=== PATIENT | female | born 1950 | race Hispanic/Latino ===

== ENCOUNTER 2018-11-13 11:07 | Emergency (ER) | payer OTHER, MEDICARE ==
[2018-11-13 12:04] LABS: BASOPHILS % (AUTO) 0.8 % (0.0-5.0); EOSINOPHILS % (AUTO) 2.3 % (0.0-8.0); HEMATOCRIT 37.1 % (36-48); LYMPHOCYTES % (AUTO) 38.5 % (21.0-51.0); MEAN CORPUSCULAR HEMOGLOBIN 33.5 pg (27.0-33.0); MEAN CORPUSCULAR HGB CONC 33.7 g/dL (32.0-36.0); MEAN CORPUSCULAR VOLUME 99.2 fL (79-99); MONOCYTES % (AUTO) 7.1 % (3.0-13.0); NEUTROPHILS % (AUTO) 51.3 % (40.0-77.0); NUCLEATED RED BLOOD CELLS 0.1 % (0.0-0.19); PLATELET COUNT (AUTO) 118 K/uL (130-400); RED BLOOD CELL COUNT(AUTO) 3.74 MIL/uL (4.00-5.50); RED CELL DISTRIBUTION WIDTH 13.7 % (11.0-15.5)
[2018-11-13] MEDS ORDERED: DIAZEPAM 5 MG TABLET ONE (12:04)
[2018-11-13 12:13] LABS: CREATININE 0.7 mg/dL (0.5-1.5); POTASSIUM 4.3 mmol/L (3.5-5.1)
[2018-11-13 12:34] LABS: B-TYPE NATRIURETIC PEPTIDE 210 pg/mL (0-100)
== END 2018-11-13 15:16 | disposition home or self-care (01) ==
LOC: EDH 11:07
DX: I10 Essential (primary) hypertension (principal); R00.1 Bradycardia, unspecified; Z98.890 Other specified postprocedural states; Z72.0 Tobacco use
CPT/HCPCS: 36415; 70450; 71045; 80048; 83880; 84484; 85025; 93005

== ENCOUNTER 2021-06-09 10:05 | Emergency (ER) | payer OTHER, MEDICARE ==
[~2021-06-09] VITALS: Ht 160 cm; Wt 75.7 kg
[2021-06-09 10:06] VITALS: BP 134/74
[2021-06-09] MEDS ORDERED: HYDROCODONE/ACETAMINOPHEN 5/325 MG TAB PO SCH (14:00)
[2021-06-09] MEDS ORDERED: TRAM100T40 PO (14:13)
== END 2021-06-09 14:30 | disposition home or self-care (01) ==
LOC: EDH 10:05
DX: S52.501A Unspecified fracture of the lower end of right radius, initial encounter for closed fracture (principal); S52.611A Displaced fracture of right ulna styloid process, initial encounter for closed fracture; I10 Essential (primary) hypertension; W01.198A Fall on same level from slipping, tripping and stumbling with subsequent striking against other object, initial encounter; Y93.89 Activity, other specified; Y92.89 Other specified places as the place of occurrence of the external cause; Y99.8 Other external cause status
CPT/HCPCS: 29125; 73110